=== PATIENT | female | born 1970 | race Caucasian/White ===

== ENCOUNTER → 2016-06-28 | Day surgery (SDC) | payer BC ==
[~2016-06-28] VITALS: Ht 157.5 cm; Wt 79.4 kg
[~2016-06-28] MED LIST: ACETAMINOPHEN 650 MG SUPP As Ordered ONE; ACETAMINOPHEN 650 MG SUPP PR ONE; IBUP80TA PO; IBUPROFEN 800 MG TAB PO SCH; KETOROLAC 30 MG/ML VIAL (J1885) IV PRN; KETOROLAC 60 MG/2 ML VIAL (J1885) As Ordered ONE; LR 1,000 ML IV SCH; MEPERIDINE INJ 25 MG/ML VIAL (J2175) IV PRN; MIDAZOLAM INJ 2 MG/2 ML VIAL (J2250) As Ordered ONE; ONDANSETRON 4MG/2ML VIAL (J2405) As Ordered ONE; ONDANSETRON 4MG/2ML VIAL (J2405) IV PRN; PERCOCET 5MG/325MG TAB PO PRN; PROPOFOL 200 MG/20 ML VIAL As Ordered ONE; SYNT137T7 PO; fentaNYL 100 MCG/2 ML INJECTION (J3010) As Ordered ONE; fentaNYL 100 MCG/2 ML INJECTION (J3010) IV PRN
[2016-06-28 15:35] VITALS: BP 129/60
--- NOTE | 2016-06-28 20:38 | RO ---
DATE OF PROCEDURE: 06/28/2016 Dianna is a 46-year-old female with a history of menorrhagia and dysmenorrhea. After counseling in the office, a decision was made for dilation and curettage, hysteroscopy and a NovaSure endometrial ablation. PREOPERATIVE DIAGNOSIS: 1. Menorrhagia. 2. Dysmenorrhea. POSTOPERATIVE DIAGNOSIS: 1. Menorrhagia. 2. Dysmenorrhea. PROCEDURE: 1. Dilation and curettage. 2. Hysteroscopy. 3. NovaSure endometrial ablation. SURGEON: Dr. Alan Thomas HOD CARRIER: ANESTHESIA: General. COMPLICATIONS: None. ESTIMATED BLOOD LOSS: Less than 50 mL. FINDINGS: An enlarged uterus with a normal appearing endometrial cavity. DESCRIPTION OF PROCEDURE: After obtaining informed consent, the patient was taken to the operating room where general anesthetic was found be adequate. She was draped and prepped in the usual sterile fashion in the dorsal lithotomy position. Straight catheter bladder was performed for approximately 100 mL of clear urine. We then placed a weighted speculum in the posterior fornix of the vagina. Using a Beltrán retractor, the anterior lip of the cervix was then grasped with a single-tooth tenaculum. The uterus was sound to approximately 10 cm in size. The cervix was then serially dilated. The hysteroscope was inserted with normal appearing endometrial cavity found. At this point, the hysteroscope was removed and sharp curettage of endometrial lining was then done. The tissues were sent to pathology for final diagnosis. The NovaSure device was inserted. The cavity length adjusted to 6.5, the cavity width to 4.6. After passing a cavity test, the device was enabled, and the endometrial ablation was then started. The endometrial ablator endometrial ablation cycle lasted approximately 1 minute and 10 seconds. Good ablative process noted. The patient tolerated the procedure well. She was then transferred to recovery room in stable condition. Copy To: [facility]
== END | disposition home or self-care (01) ==
LOC: M SDC 10:54
PROVIDERS: ATTEND Obstetrics & Gynecology
DX: N92.0 Excessive and frequent menstruation with regular cycle (principal); N94.6 Dysmenorrhea, unspecified; E03.9 Hypothyroidism, unspecified; Z98.51 Tubal ligation status; Z79.899 Other long term (current) drug therapy
CPT/HCPCS: 58563; 88305; C2618; J1885; J2250; J2405; J3010

== ENCOUNTER → 2017-08-03 | Outpatient (REF) | payer BC | LOC: M SFHCLERA 11:11 | DX: M79.1 Myalgia (principal) ==

== ENCOUNTER → 2022-09-20 | Outpatient (CLI) | payer BC ==
[~2022-09-20] MED LIST changes: -ACETAMINOPHEN 650 MG SUPP As Ordered ONE; -ACETAMINOPHEN 650 MG SUPP PR ONE; -IBUPROFEN 800 MG TAB PO SCH; -KETOROLAC 30 MG/ML VIAL (J1885) IV PRN; -KETOROLAC 60 MG/2 ML VIAL (J1885) As Ordered ONE; -LR 1,000 ML IV SCH; -MEPERIDINE INJ 25 MG/ML VIAL (J2175) IV PRN; -MIDAZOLAM INJ 2 MG/2 ML VIAL (J2250) As Ordered ONE; -ONDANSETRON 4MG/2ML VIAL (J2405) As Ordered ONE; -ONDANSETRON 4MG/2ML VIAL (J2405) IV PRN; -PERCOCET 5MG/325MG TAB PO PRN; -PROPOFOL 200 MG/20 ML VIAL As Ordered ONE; -fentaNYL 100 MCG/2 ML INJECTION (J3010) As Ordered ONE; -fentaNYL 100 MCG/2 ML INJECTION (J3010) IV PRN
== END ==
LOC: M WHC 10:49
PROVIDERS: ATTEND Obstetrics & Gynecology
DX: Z12.31 Encounter for screening mammogram for malignant neoplasm of breast (principal)